=== PATIENT | female | born 1990 | race Caucasian/White ===

== ENCOUNTER 2016-06-29 16:57 | Emergency (ER) | payer BC ==
[~2016-06-29] VITALS: Ht 180.3 cm; Wt 128.4 kg
[2016-06-29 17:21] VITALS: BP 147/102
[2016-06-29] MEDS ORDERED: KETOROLAC TROMETHAMINE 60 MG/2 ML INJ. IM ONE (18:45)
--- NOTE | 2016-06-29 18:52 | RAD ---
PROCEDURE Left breast sonogram. HISTORY Left breast pain. Spider bite. TECHNIQUE Sonographic imaging of the left breast targeted to the site of palpable concern was performed. COMPARISON None. FINDINGS There is edema within the left breast soft tissue at 3:00 position 4 cm from the nipple. There is overlying erythema and a cutaneous lesion due to a reported spider bite. No drainable fluid collection is seen. IMPRESSION 1. Soft tissue edema at the 3 o'clock position of the left breast 4 cm from the nipple, underlying the location of a reported spider bed. No drainable abscess is seen. Continued clinical followup of palpable abnormalities is recommended. 2. BI-RADS category 2: Benign findings. Electronically signed by: Marta Reyna (Jun 29, 2016 18:51:29)
[2016-06-29] MEDS ORDERED: CEPH-264 PO (19:06)
[2016-06-29] MEDS ORDERED: SULF1TAB24 PO (19:06)
[2016-06-29] MEDS ORDERED: ACET-704 PO (19:06)
--- NOTE | 2016-06-29 19:07 | PHYS DOC ---
Past Medical History Past Medical History: Asthma, Other Additional Past Medical Histor: BACK PAIN, CHRONIC, morbid obesity Past Surgical History: Tonsillectomy Smoking: Less than 1pk/day Alcohol Use: Rarely Drug Use: None Adult General Chief Complaint Chief Complaint: BREAST PROBLEM HPI HPI Patient is a 25 year old female who presents with a "spider bite" to the left breast for 4 days. She reports subjective fever and chills. She denies drainage from the wound. She denies injury to the breast. She is not . Her PCP is Dr. Hudson. Review of Systems Review of Systems Constitutional: Subjective fever and chills. Eyes: Denies change in visual acuity, redness, or eye pain. [] HENT: Denies ear pain, nasal congestion or sore throat. [] Respiratory: Denies cough or shortness of breath. [] Cardiovascular: Denies chest pain, palpitations or edema. [] GI: Denies abdominal pain, nausea, vomiting, bloody stools or diarrhea. [] : Denies dysuria, hematuria or urinary frequency. [] Musculoskeletal: Denies back pain or joint pain. [] Integument: Reports left breast "spider bite". Neurologic: Denies headache, focal weakness or sensory changes. [] Endocrine: Denies polyuria or polydipsia. [] Psych: Denies anxiety or depression. [] All systems reviewed and negative unless otherwise stated in the HPI. Current Medications Current Medications Current Medications Medications (Trade) Dose Ordered Sig/Antione Start Time Stop Time Status Last Admin Dose Admin Ketorolac Tromethamine (Toradol Im) 60 mg 1X ONCE 06/29/16 18:45 06/29/16 18:46 DC 06/29/16 18:43 60 MG Allergies Allergies Allergies Coded Allergies Type Severity Reaction Last Updated Verified Bleach (Sodium Hypochlorite) Allergy Intermediate hives 06/29/16 Yes naproxen Allergy Intermediate hives 06/29/16 No peanut Allergy Intermediate Hives 06/29/16 Yes Physical Exam Physical Exam Constitutional: Well developed, well nourished, no acute distress, non-toxic appearance. [] HENT: Normocephalic, atraumatic, oropharynx moist. [] Eyes: PERRLA, EOMI, conjunctiva normal, no discharge. [] Skin: Warm, dry, no rash. There is a [id number] area of erythema lateral to the left nipple with a 2x2cm area of induration covered by a scab. There is no purulent drainage from the wound. There is no nipple discharge. Neurologic: Alert and oriented X 3, normal motor function, normal sensory function, no focal deficits noted. [] Psychologic: Affect normal, judgement normal, mood normal. [] Current Patient Data Vital Signs Vital Signs Date Time Temp Pulse Resp B/P Pulse Ox O2 Delivery O2 Flow Rate FiO2 06/29/16 17:21 98.8 108 20 99 Room Air 98.8 EKG EKG [] Radiology/Procedures Radiology/Procedures REASON: abscess left lateral breast PROCEDURE: BREAST LEFT PROCEDURE Left breast sonogram. HISTORY Left breast pain. Spider bite. TECHNIQUE Sonographic imaging of the left breast targeted to the site of palpable concern was performed. COMPARISON None. FINDINGS There is edema within the left breast soft tissue at 3:00 position 4 cm from the nipple. There is overlying erythema and a cutaneous lesion due to a reported spider bite. No drainable fluid collection is seen. IMPRESSION 1. Soft tissue edema at the 3 o'clock position of the left breast 4 cm from the nipple, underlying the location of a reported spider bed. No drainable abscess is seen. Continued clinical followup of palpable abnormalities is recommended. 2. BI-RADS category 2: Benign findings. Course & Med Decision Making Course & Med Decision Making Pertinent Labs and Imaging studies reviewed. (See chart for details) [] Dragon Disclaimer Dragon Disclaimer This electronic medical record was generated, in whole or in part, using a voice recognition dictation system. Departure Departure Impression: Primary Impression: Cellulitis of female breast Disposition: 01 HOME, SELF-CARE Condition: STABLE Referrals: ALIE HUDSON MD (PCP) Patient Instructions: Cellulitis, [id number] Additional Instructions: You have an infection of the superficial tissues of the left breast. Please complete all of the prescribed antibiotics, even if the wound is improving. Please take the prescribed pain medication as directed. Do not drive or operate heavy machinery while taking pain medication. Please follow up with your primary care doctor in 2-3 days for recheck of your wound, sooner if concerns. Return to the emergency department if you have any new or concerning symptoms. Scripts Acetaminophen With Codeine (Tylenol With Codeine #3 Tablet)1 Each Tablet1 Tab PO PRN Q6HRS PRN PAIN #20 TAB Prov:DONAVAN FAULKNER 06/29/16 Cephalexin (Keflex)500 Mg Capsule1 Cap PO BID 10 Days Prov:DONAVAN FAULKNER 06/29/16 Sulfamethoxazole/Trimethoprim (Bactrim Ds Tablet)1 Each Tablet1 Tab PO BID 10 Days Prov:DONAVAN FAULKNER 06/29/16 DONAVAN FAULKNER Jun 29, 2016 19:07
== END 2016-06-29 19:15 | disposition home or self-care (01) ==
LOC: ER 16:57
DX: N61.0 Mastitis without abscess (principal); T63.301A Toxic effect of unspecified spider venom, accidental (unintentional), initial encounter; J45.909 Unspecified asthma, uncomplicated; G89.29 Other chronic pain; E66.01 Morbid (severe) obesity due to excess calories; F17.200 Nicotine dependence, unspecified, uncomplicated; Z68.39 Body mass index [BMI] 39.0-39.9, adult; Z88.6 Allergy status to analgesic agent; Z91.010 Allergy to peanuts; Z91.048 Other nonmedicinal substance allergy status; W57.XXXA Bitten or stung by nonvenomous insect and other nonvenomous arthropods, initial encounter; Y93.89 Activity, other specified; Y92.89 Other specified places as the place of occurrence of the external cause; Y99.8 Other external cause status
CPT/HCPCS: 76641; 96372; 99284; J1885